=== PATIENT | female | born 1975 | race Caucasian/White ===

== ENCOUNTER → 2017-08-10 | Outpatient (REF) | payer OTHER | LOC: M LAB REF 20:34 | PROVIDERS: ATTEND Physician Assistant | DX: J02.9 Acute pharyngitis, unspecified (principal) ==

== ENCOUNTER → 2018-03-20 | Outpatient (CLI) | payer OTHER | LOC: M LRY 15:36 | DX: M54.2 Cervicalgia (principal) ==

== ENCOUNTER → 2018-03-20 | Outpatient (CLI) | payer OTHER | LOC: M LRY 15:50 | DX: M50.322 Other cervical disc degeneration at C5-C6 level (principal) | CPT/HCPCS: 72052; 96372 ==

== ENCOUNTER → 2018-12-02 | Outpatient (CLI) | payer BC, OTHER ==
--- NOTE | 2018-12-02 11:25 | REP ---
Clinical: Hip pain. Technique: Neutral and frog lateral views of the right hip. Findings: Mild age-related changes include subtle increase sclerosis to the acetabular roof. No acute fracture dislocation. No further osteoarthritic degenerative changes are appreciated. Surrounding soft tissues are unremarkable. Impression: Mild age-related changes. Electronically Signed by Eliu Subramanian MD 12/02/2018 11:17 A
== END ==
LOC: M LRY 10:56
PROVIDERS: ATTEND Nurse Practitioner Family
DX: M25.551 Pain in right hip (principal)

== ENCOUNTER → 2019-06-03 | Outpatient (CLI) | payer BC, OTHER ==
--- NOTE | 2019-06-03 11:53 | REP ---
PA and lateral chest: There are no comparisons. There are two faintly visible nodule - like densities in the right lung, one measuring 10 mm and the other measuring 16 millimeters. In the absence of comparison studies to document stability. Recommend CT for further evaluation of these nodular densities. There are no infiltrates or pleural effusions. Lung mae otherwise clear. Cardiac size is normal. The marques, mediastinum, skeletal structures are. Impression: There are too faintly visible nodular densities in the right lung. I would recommend CT for further evaluation. There are no infiltrates or pleural effusions. Electronically Signed by Basim Paredes MD 06/03/2019 11:45 A
== END ==
LOC: M LRY 11:27
PROVIDERS: ATTEND Physician Assistant
DX: F17.200 Nicotine dependence, unspecified, uncomplicated (principal); J40 Bronchitis, not specified as acute or chronic

== ENCOUNTER → 2020-02-27 | Outpatient (CLI) | payer BC, OTHER ==
--- NOTE | 2020-02-27 13:59 | REP ---
Clinical: Nontraumatic pain . Technique: AP, lateral, bilateral oblique views right ankle . Findings: No acute fracture or dislocation. Skeletal structures and joint spaces are intact and normal. Ankle mortise appears stable. No subcutaneous emphysema or radiodense foreign body. Impression: Normal right ankle radiograph series. Electronically Signed by Eliu Subramanian MD 02/27/2020 01:51 P
== END ==
LOC: M LRY 13:09
PROVIDERS: ATTEND Nurse Practitioner Adult Health
DX: M25.571 Pain in right ankle and joints of right foot (principal)

== ENCOUNTER → 2022-10-15 | Outpatient (CLI) | payer OTHER ==
[2022-10-15 16:22] LABS: BASO % 0.7 % (0.0-1.0); EOS # 0.1 10^3/uL (0.0-0.5); EOS % 1.5 % (0.0-3.0); HEMATOCRIT 42.9 % (36.0-47.0); HEMOGLOBIN 13.8 g/dl (12.0-15.5); LYMPH # 1.9 10^3/uL (1.5-5.0); LYMPH % 30.4 % (24.0-44.0); MEAN CORPUSCULAR HEMOGLOBIN 29.7 pg (27.0-33.0); MEAN CORPUSCULAR HGB CONC 32.2 g/dl (32.0-36.5); MEAN CORPUSCULAR VOLUME 92.3 fl (80.0-96.0); MONO # 0.5 10^3/uL (0.0-0.8); MONO % 8.5 % (2.0-8.0); NEUTROPHILS # 3.6 10^3/uL (1.5-8.5); NEUTROPHILS % 58.6 % (36.0-66.0); PLATELET COUNT, AUTOMATED 246 10^3/uL (150-450); RED BLOOD COUNT 4.65 10^6/uL (4.00-5.40); WHITE BLOOD COUNT 6.1 10^3/uL (4.0-10.0)
[2022-10-15 16:59] LABS: ALBUMIN 3.9 G/DL (3.2-5.2); ALKALINE PHOSPHATASE 60 U/L (46-116); ALT/SGPT 14 U/L (7.0-40); AST/SGOT 17 U/L (<34); BILIRUBIN,TOTAL 0.3 MG/DL (0.3-1.2); BLOOD UREA NITROGEN 11 MG/DL (9-23); CALCIUM LEVEL 9.3 MG/DL (8.5-10.1); CARBON DIOXIDE LEVEL 28 MMOL/L (20-31); CHLORIDE LEVEL 107 MMOL/L (98-107); CHOLESTEROL LEVEL 148 MG/DL (<200); CHOLESTEROL RISK RATIO 2.84 (<5); CREATININE FOR GFR 0.69 MG/DL (0.55-1.30); GLOMERULAR FILTRATION RATE > 60.0 (>58); GLUCOSE, FASTING 78 MG/DL (60-100); LDL CHOLESTEROL 73.2 MG/DL (<100); NON-HDL-C 96 MG/DL; POTASSIUM SERUM 4.1 MMOL/L (3.5-5.1); SODIUM LEVEL 141 MMOL/L (136-145); THYROID STIMULATING HORMONE 1.882 uIU/ML (0.55-4.78); TOTAL 25(OH) VITAMIN D 33.7 NG/ML (20.0-100.0); TOTAL PROTEIN 6.6 G/DL (5.7-8.2); TRIGLYCERIDES LEVEL 114 MG/DL (<150)
[2022-10-15 17:06] LABS: HEMOGLOBIN A1c 4.9 % (4.0-6.0)
== END ==
LOC: M WUC 10:14
PROVIDERS: ATTEND Nurse Practitioner Family
DX: Z00.01 Encounter for general adult medical examination with abnormal findings (principal); J44.9 Chronic obstructive pulmonary disease, unspecified; F17.210 Nicotine dependence, cigarettes, uncomplicated; Z79.899 Other long term (current) drug therapy

== ENCOUNTER → 2023-04-05 | Outpatient (REF) | payer OTHER | LOC: M SFHCWAGY 18:17 | PROVIDERS: ATTEND Obstetrics & Gynecology | DX: D26.1 Other benign neoplasm of corpus uteri (principal) ==

== ENCOUNTER 2023-04-25 06:02 | Day surgery (SDC) | payer OTHER ==
[~2023-04-25] VITALS: Ht 152.4 cm; Wt 58.1 kg
[~2023-04-25 06:02] MED LIST: ALBU8.5H INH; CETI-24 PO; FLUT50SP17; VITMTA PO; ceFAZolin SOD 2 GM in IV 1 EA IV ONE
[2023-04-25] MEDS ORDERED: LR 1,000 ML IV SCH ×3 (06:20→09:40)
[2023-04-25 06:39] LABS: HCG, SERUM QUALITATIVE NEGATIVE (NEGATIVE)
[2023-04-25 06:39] LABS: HEMATOCRIT 42.1 % (36.0-47.0); MEAN CORPUSCULAR HGB CONC 33.3 g/dl (32.0-36.5); MEAN CORPUSCULAR VOLUME 90.3 fl (80.0-96.0); PLATELET COUNT, AUTOMATED 219 10^3/uL (150-450); RED BLOOD COUNT 4.66 10^6/uL (4.00-5.40); WHITE BLOOD COUNT 5.1 10^3/uL (4.0-10.0)
[2023-04-25] MEDS ORDERED: LIDOCAINE 2% 100MG/5ML SDV (FOR ANES.) As Ordered ONE (07:54)
[2023-04-25] MEDS ORDERED: ONDANSETRON 4MG 2ML VIAL As Ordered ONE (07:54)
[2023-04-25] MEDS ORDERED: fentaNYL 250 MCG/5 ML INJECTION As Ordered ONE (07:54)
[2023-04-25] MEDS ORDERED: HYDROmorphone HCL 2MG/ML 1ML VIAL As Ordered ONE (07:54)
[2023-04-25] MEDS ORDERED: SUGAMMADEX SODIUM 500 MG/5 ML VIAL (BRIDION) As Ordered ONE (07:54)
[2023-04-25] MEDS ORDERED: ACETAMINOPHEN 1000MG 100ML IV BAG As Ordered ONE (07:54)
[2023-04-25] MEDS ORDERED: ROCURONIUM BROMIDE 50MG/5ML VIAL As Ordered ONE (07:54)
[2023-04-25] MEDS ORDERED: KETOROLAC 60MG 2ML VIAL As Ordered ONE (07:54)
[2023-04-25] MEDS ORDERED: MIDAZOLAM INJ 2MG/2ML VIAL As Ordered ONE (07:54)
[2023-04-25] MEDS ORDERED: METOCLOPRAMIDE INJ 10MG/2ML VIAL As Ordered ONE (07:54)
[2023-04-25] MEDS ORDERED: propofoL 200 MG/20 ML VIAL As Ordered ONE (07:54)
[2023-04-25] MEDS ORDERED: DESFLURANE 240 ML INHALANT As Ordered ONE (08:47)
[2023-04-25] MEDS ORDERED: DOCUSATE SODIUM 100MG CAPSULE PO SCH (09:00)
[2023-04-25] MEDS ORDERED: ePHEDrine SULFATE 25 MG/5 ML(5MG/ML) SYRINGE As Ordered ONE (09:16)
[2023-04-25] MEDS ORDERED: GLYCOPYRROLATE INJ 0.2 MG/ML 2 ML VIAL As Ordered ONE (09:17)
[2023-04-25] MEDS ORDERED: ONDANSETRON 4MG 2ML VIAL IV PRN ×2 (09:30→09:40)
[2023-04-25] MEDS ORDERED: HYDROMORPHONE HCL 0.5 MG/ 0.5 ML SYRINGE IV PRN (09:30)
[2023-04-25] MEDS ORDERED: fentaNYL 100 MCG/2 ML INJECTION IV PRN (09:30)
[2023-04-25] MEDS ORDERED: oxyCODONE 5MG TAB PO PRN (09:30)
[2023-04-25] MEDS ORDERED: MORPHINE 2 MG/ML 1ML VIAL IV PRN (09:40)
[2023-04-25] MEDS ORDERED: PROMETHAZINE 25MG/ML 1ML VIAL IV PRN (09:40)
[2023-04-25] MEDS ORDERED: PERCOCET 5MG/325MG TAB PO PRN ×2 (09:40)
[2023-04-25] MEDS ORDERED: COLA100C5 PO (09:48)
[2023-04-25] MEDS ORDERED: IBUP80TA PO (09:48)
[2023-04-25] MEDS ORDERED: PERCOCET PO (09:48)
[2023-04-25 11:07] VITALS: BP 104/50; TEMP 98.5; O2SAT 98
[2023-04-25 11:37] VITALS: BP 113/53; TEMP 98.8; O2SAT 97
[2023-04-25 12:07] VITALS: BP 109/55; TEMP 98.6; O2SAT 97
[2023-04-25 13:07] VITALS: BP 101/54; TEMP 98.8; O2SAT 98
[2023-04-25 14:07] VITALS: BP 93/51; TEMP 99.1; O2SAT 97
[2023-04-25] MEDS ORDERED: KETOROLAC 30 MG/ML 1ML VIAL IV SCH (15:00)
[2023-04-25 15:07] VITALS: BP 125/56; TEMP 99; O2SAT 97
[2023-04-26] MEDS ORDERED: IBUPROFEN 800 MG TAB PO SCH (17:00)
== END 2023-04-25 16:30 | disposition home or self-care (01) ==
LOC: M SDC 06:02 → M PED 11:04 → M SDC 16:30
PROVIDERS: ATTEND Obstetrics & Gynecology
DX: N93.9 Abnormal uterine and vaginal bleeding, unspecified (principal); J45.909 Unspecified asthma, uncomplicated; F17.210 Nicotine dependence, cigarettes, uncomplicated; Z91.041 Radiographic dye allergy status; Z91.040 Latex allergy status; Z91.013 Allergy to seafood; Z79.51 Long term (current) use of inhaled steroids; Z79.899 Other long term (current) drug therapy
CPT/HCPCS: 36415; 58571; 84703; 85027; 86850; 86900; 86901; 88307; J0131; J0665; J0690; J1100; J1170; J1885; J2250; J2405; J2765; J3010; S2900

== ENCOUNTER → 2024-04-04 | Outpatient (CLI) | payer OTHER ==
[~2024-04-04] MED LIST changes: +COLA100C5 PO; -FLUT50SP17; +FLUTISP; +IBUP80TA PO; +PERCOCET PO; -ceFAZolin SOD 2 GM in IV 1 EA IV ONE
== END ==
LOC: M CARPUL 12:35
PROVIDERS: ATTEND Family Medicine
DX: J45.909 Unspecified asthma, uncomplicated (principal)

== ENCOUNTER → 2024-04-20 | Outpatient (CLI) | payer OTHER | LOC: M WHC 10:18 | PROVIDERS: ATTEND Obstetrics & Gynecology | DX: Z12.31 Encounter for screening mammogram for malignant neoplasm of breast (principal) ==